=== PATIENT | male | born 1980 | race Caucasian/White ===

== ENCOUNTER 2017-02-07 22:29 | Emergency (ER) | payer OTHER ==
[~2017-02-07] VITALS: Ht 180.3 cm; Wt 93.5 kg
[~2017-02-07 22:29] MED LIST: CELEXA20 MG PO; DAILY VITAMIN1 EAC4 PO; KLONOPIN0.5 M1 PO; LOPRESSOR25 MG PO; NOHOMEMEDS; PERCOCET; PROPECIA1 MG PO; VICODIN; VITAMIN C1000 M1 PO; ZOFRAN4 MG PO
[2017-02-08 00:20] LABS: HEMATOCRIT 57.2 % (38.0-50.0); MCH 27.4 PG (29.0-34.0); MCHC 31.6 G/DL (30.0-36.0); MCV 86.7 FL (86-99); MEAN PLAT.VOLUME 9.9 uM^3 (9.0-12.4); PLATELET COUNT 227 K/uL (156-360); RBC DIS.WIDTH-CV 17.3 % (11.8-14.6); RBC DIS.WIDTH-SD 50.2 % (39-53); WHITE BLOOD COUNT 7.6 K/uL (4.1-10.2)
[2017-02-08 00:29] LABS: ADD MIUA? YES; BILIRUBIN NEGATIVE; BLOOD MODERATE; COLOR YELLOW ((YELLOW)); GLUCOSE (STRIP) NEGATIVE; KETONES NEGATIVE; LEUKOCYTES NEGATIVE; NITRITE NEGATIVE; PROTEIN (STRIP) 100; SPECIFIC GRAVITY 1.026 (1.000-1.030)
[2017-02-08 00:32] LABS: CHLORIDE 104 mEq/L (99-109); SODIUM 140 mEq/L (136-147)
[2017-02-08 00:34] LABS: GLUCOSE 87 mg/dL (70-99)
[2017-02-08 00:35] LABS: ANION GAP 9 MEQ/L (2-14)
[2017-02-08 00:36] LABS: TOTAL BILIRUBIN 1.4 mg/dL (0.0-1.0)
[2017-02-08 00:38] LABS: ALKALINE PHOSPHATASE 36 IU/L (3-129); GFR ESTIMATE (CALCULATED) 56 mL/min/
[2017-02-08 00:39] LABS: UREA NITROGEN (BUN) 17 mg/dL (9-23)
[2017-02-08 00:40] LABS: BACTERIA RARE /HPF; EPITHELIAL CELLS NONE SEEN /HPF; MUCUS TRACE /LPF; UCUL ADDED? NO; WHITE BLOOD CELLS 0-5 /HPF (0-5)
[2017-02-08] MEDS ORDERED: TRAMADOL HCL50 MG PO (02:17)
[2017-02-08 02:28] VITALS: BP 166/102
== END 2017-02-08 02:29 | disposition home or self-care (01) ==
LOC: EME 22:29
PROVIDERS: Physician Assistant
DX: R10.31 Right lower quadrant pain (principal); R31.9 Hematuria, unspecified; G43.909 Migraine, unspecified, not intractable, without status migrainosus; R11.0 Nausea
CPT/HCPCS: 74177; 80053; 81003; 83690; 85027; 99281; 99284; J7030